=== PATIENT | male | born 1975 | race Caucasian/White ===

== ENCOUNTER 2021-07-04 08:11 | Day surgery (SDC) | payer OTHER ==
[2021-07-02 14:12] LABS: EOSINOPHILS % (AUTO) 2.7 % (1.0-6.0); HEMATOCRIT 44.9 % (41-53); HEMOGLOBIN 15.3 g/dL (13.5-17.5); LYMPHOCYTES # (AUTO) 3.1 K/uL (1.0-4.8); LYMPHOCYTES % (AUTO) 42.1 % (22.0-44.0); MEAN CORPUSCULAR HEMOGLOBIN 29.6 pg (26.0-34.0); MEAN CORPUSCULAR HGB CONC 34.1 G/dL (31.0-37.0); MEAN CORPUSCULAR VOLUME 87 fL (80-100); MONOCYTES # (AUTO) 0.7 K/uL (0.1-1.0); NEUTROPHILS # (AUTO) 3.3 K/uL (1.8-7.7); NEUTROPHILS % (AUTO) 45.2 % (40.0-70.0); PLATELET COUNT (AUTO) 175 K/uL (150-450); RED BLOOD CELL COUNT(AUTO) 5.18 MIL/uL (4.50-5.90)
[2021-07-02 14:19] LABS: COVID AG,FIA SOURCE NASAL SWAB
[2021-07-02 14:25] LABS: INR 1.1 (0.9-1.1); PROTHROMBIN TIME 11.4 SEC (9.4-11.6)
[2021-07-02 14:38] LABS: ANION GAP 10 mmol/L (8-16); CALCIUM, TOTAL 9.2 mg/dL (8.8-10.5); CARBON DIOXIDE 25 mmol/L (22-29); CHLORIDE 101 mmol/L (98-107); CREATININE 0.91 mg/dL (0.60-1.30); GLOMERULAR FILTR. RATE CALC > 60 mL/min (>60); GLUCOSE,RANDOM 104 mg/dL (70-110); SODIUM SERUM 136 mmol/L (136-145); UREA NITROGEN, BLOOD 12 mg/dL (7-18)
[2021-07-02 14:40] LABS: ALANINE AMINOTRANSFERASE 60 U/L (12-78); ALBUMIN 4.1 g/dL (3.4-5.0); ALKALINE PHOSPHATASE 60 U/L (46-116); ASPARTATE AMINOTRANSFERASE 46 U/L (15-37); BILIRUBIN,TOTAL 0.5 mg/dL (0.1-1.0)
[~2021-07-04] VITALS: Ht 175.3 cm; Wt 125.0 kg
[~2021-07-04 08:11] MED LIST: ASCO100061 PO; ASPI-1450 PO; CALC-1038 PO; DULA3PEN PO; LISI-893 PO; METF-1185 PO; MULT-660 PO; OMEG-108 PO; SITA100 PO; SODIUM CHLORIDE 0.9% 1,000 ML IV ONE; SODIUM CHLORIDE 0.9% 1,000 ML ONE
[2021-07-04 08:51] LABS: GLUCOMETER DEV NAME(LOC) SDS.; GLUCOSE,POINT OF CARE 145 MG/DL (70-110)
[2021-07-04] MEDS ORDERED: IOHEXOL 300 MG/ML 50 ML VIAL ONE (09:26)
[2021-07-04] MEDS ORDERED: HEPARIN SODIUM 1000 UNITS/NS 1,000 ML ONE (09:27)
[2021-07-04] MEDS ORDERED: IOHEXOL 300 MG/ML 150 ML VIAL ONE (09:27)
[2021-07-04] MEDS ORDERED: SODIUM BICARBONATE 50 MEQ/50 ML VIAL ONE (09:27)
[2021-07-04] MEDS ORDERED: LIDOCAINE/PF 1% 30 ML VIAL ONE (09:27)
[2021-07-04] MEDS ORDERED: IOHEXOL 300 MG/ML 100 ML VIAL ONE (09:27)
[2021-07-04 09:46] VITALS: BP 136/69
[2021-07-04] MEDS ORDERED: NITROGLYCERIN 50 MG/D5% WATER 250 ML ONE (09:47)
[2021-07-04] MEDS ORDERED: FentaNYL CITRATE PF 100 MCG/2 ML VIAL ONE (09:47)
[2021-07-04] MEDS ORDERED: VERAPAMIL HCL 2.5 MG/ML 2 ML VIAL ONE (09:47)
[2021-07-04] MEDS ORDERED: MIDAZOLAM HCL 2 MG/2 ML VIAL ONE (09:47)
[2021-07-04] MEDS ORDERED: VERAPAMIL HCL 2.5 MG/ML 2 ML VIAL IARTER ONE ×2 (10:45→11:00)
[2021-07-04] MEDS ORDERED: HEPARIN SODIUM 1000 UNITS/NS 1,000 ML IARTER ONE (10:45)
[2021-07-04] MEDS ORDERED: IOHEXOL 300 MG/ML 150 ML VIAL IARTER ONE (10:45)
[2021-07-04] MEDS ORDERED: FentaNYL CITRATE PF 100 MCG/2 ML VIAL IVP ONE (10:45)
[2021-07-04] MEDS ORDERED: MIDAZOLAM HCL 2 MG/2 ML VIAL IVP ONE (10:45)
[2021-07-04] MEDS ORDERED: LIDOCAINE 1% 30 ML/SOD BICARB 8.4% 4 ML SQ ONE (10:45)
[2021-07-04] MEDS ORDERED: NITROGLYCERIN/D5W 50 MG/250 ML IV BOTTLE IARTER ONE ×2 (10:45→11:00)
[2021-07-04] MEDS ORDERED: IOHEXOL 300 MG/ML 50 ML VIAL IARTER ONE (11:00)
[2021-07-04] MEDS ORDERED: SODIUM CHLORIDE 0.9% 500 ML IV ONE ×2 (11:00→11:15)
[2021-07-04 11:11] VITALS: BP 122/66
[2021-07-04] MEDS ORDERED: ACETAMINOPHEN 325 MG TABLET PO PRN (11:15)
== END 2021-07-04 15:05 | disposition home or self-care (01) ==
LOC: CATHLAB 08:11
PROVIDERS: ATTEND Internal Medicine Cardiovascular Disease
DX: R07.9 Chest pain, unspecified (principal); I10 Essential (primary) hypertension; R94.39 Abnormal result of other cardiovascular function study; Z79.899 Other long term (current) drug therapy; E11.9 Type 2 diabetes mellitus without complications; Z79.82 Long term (current) use of aspirin
CPT/HCPCS: 36415; 80053; 82962; 85025; 85610; 85730; 87426; 93005; 93458; 99152; 99153; C1760; C9803; J1644; J2250; J3010; J3490 ×4; J7030; Q9967 ×3

== ENCOUNTER 2023-11-22 12:58 | Emergency (ER) | payer OTHER ==
[~2023-11-22] VITALS: Ht 177.8 cm; Wt 122.7 kg
[~2023-11-22 12:58] MED LIST changes: -OMEG-108 PO; +OMEG-135 PO; -SODIUM CHLORIDE 0.9% 1,000 ML IV ONE; -SODIUM CHLORIDE 0.9% 1,000 ML ONE
[2023-11-22 13:07] VITALS: TEMP 98.6
[2023-11-22] MEDS ORDERED: LOSA-381 PO (13:13)
[2023-11-22] MEDS ORDERED: ALBU18HF12 IH (13:13)
[2023-11-22] MEDS ORDERED: FEXO-353 PO (13:13)
[2023-11-22] MEDS ORDERED: EVOL140P3 SQ (13:13)
[2023-11-22 13:30] LABS: BASOPHILS % (AUTO) 0.3 % (0.0-2.0); EOSINOPHILS % (AUTO) 0.1 % (1.0-6.0); HEMATOCRIT 46.1 % (41-53); HEMOGLOBIN 15.7 g/dL (13.5-17.5); LYMPHOCYTES # (AUTO) 0.4 K/uL (1.0-4.8); LYMPHOCYTES % (AUTO) 4.3 % (22.0-44.0); MEAN CORPUSCULAR HEMOGLOBIN 30.2 pg (26.0-34.0); MEAN CORPUSCULAR HGB CONC 34.2 G/dL (31.0-37.0); MEAN CORPUSCULAR VOLUME 89 fL (80-100); MONOCYTES # (AUTO) 0.2 K/uL (0.1-1.0); MONOCYTES % (AUTO) 2.5 % (2.0-9.0); NEUTROPHILS # (AUTO) 8.8 K/uL (1.8-7.7); PLATELET COUNT (AUTO) 145 K/uL (150-450); RED BLOOD CELL COUNT(AUTO) 5.21 MIL/uL (4.50-5.90); WHITE BLOOD COUNT (AUTO) 9.5 K/uL (4.5-11.0)
[2023-11-22 13:31] LABS: NEUTROPHILS % (AUTO) 92.8 % (40.0-70.0)
[2023-11-22 13:40] LABS: ANION GAP 12 mmol/L (8-16); CALCIUM, TOTAL 8.8 mg/dL (8.8-10.5); CARBON DIOXIDE 24 mmol/L (22-29); CHLORIDE 98 mmol/L (98-107); CREATININE 1.09 mg/dL (0.60-1.30); GLOMERULAR FILTR. RATE CALC > 60 mL/min (>60); GLUCOSE,RANDOM 198 mg/dL (70-110); POTASSIUM 3.3 mmol/L (3.5-5.1); SODIUM SERUM 134 mmol/L (136-145); UREA NITROGEN, BLOOD 12 mg/dL (7-18)
[2023-11-22 13:47] LABS: ALANINE AMINOTRANSFERASE 43 U/L (12-78); ALBUMIN 3.5 g/dL (3.4-5.0); ALKALINE PHOSPHATASE 75 U/L (46-116); ASPARTATE AMINOTRANSFERASE 34 U/L (15-37); BILIRUBIN,TOTAL 0.7 mg/dL (0.1-1.0); LIPASE 150 U/L (16-77); TOTAL PROTEIN, SERUM 7.6 g/dL (6.4-8.2)
[2023-11-22 13:51] LABS: RBC MORPHOLOGY COMMENT NORMAL RBC MORPH
[2023-11-22 13:58] LABS: COVID AG,FIA SOURCE NASAL SWAB
[2023-11-22 14:20] LABS: APPEARANCE,URINE TURBID (CLEAR); BILIRUBIN,URINE NEGATIVE (NEGATIVE); GLUCOSE, URINE (UA) NEGATIVE (NEGATIVE); LEUKOCYTE ESTERASE ,URINE LARGE (NEGATIVE); NITRATE,URINE NEGATIVE (NEGATIVE); OCCULT BLOOD,URINE LARGE (NEGATIVE); PH,URINE 6.5 (5.0-8.0); PROTEIN,URINE 100-200,SEE CONFIRM mg/dL (NEGATIVE); UROBILINOGEN,URINE <=1.0 mg/dL (<=1.0)
[2023-11-22 14:25] LABS: COLOR,URINE YELLOW (YELLOW)
[2023-11-22 14:32] LABS: SULFOSALICYLIC ACID,URINE 3+ (Negative)
[2023-11-22 14:33] LABS: BACTERIA,URINE Few /HPF (None Seen); SQUAMOUS EPITHELIAL CELL,UR Few /LPF (None Seen); WBC,URINE >100 /HPF (0-5)
[2023-11-22 14:37] LABS: SARS-COV2 (COVID) ANTIGEN,FIA Negative (Negative)
[2023-11-22 14:38] LABS: INFLUENZA TYPE A NEGATIVE FOR TYPE A (NEGATIVE); INFLUENZA TYPE B NEGATIVE FOR TYPE B (NEGATIVE)
[2023-11-22 14:45] LABS: CREATINE KINASE, TOTAL ONLY 357 U/L (39-308)
[2023-11-22] MEDS: POTASSIUM CHLORIDE 20 MEQ ER TABLET PO ONE (15:52)
[2023-11-22] MEDS: SODIUM CHLORIDE 0.9% 1,000 ML IV ONE (15:55)
[2023-11-22] MEDS: CefTRIAXone 1 GM/DEXTROSE 50 ML IV ONE (15:55)
[2023-11-22] MEDS ORDERED: CEFD300C18 PO (16:58)
[2023-11-22 17:06] VITALS: BP 131/77; PULSE 97; RESP 14
== END 2023-11-22 17:45 | disposition home or self-care (01) ==
LOC: EMS 12:58
DX: N12 Tubulo-interstitial nephritis, not specified as acute or chronic (principal); E11.9 Type 2 diabetes mellitus without complications; I10 Essential (primary) hypertension; Z98.890 Other specified postprocedural states; Z20.822 Contact with and (suspected) exposure to COVID-19
CPT/HCPCS: 99285; 74176; 96365; 87426; 80048; 80076; 81001; 82550; 82962; 83690; 85025; 87804; 36415; 87086; 87186; 93005; J0696; J7030; 81002